=== PATIENT | female | born 1945 | race Caucasian/White ===

== ENCOUNTER → 2023-12-14 08:25 | Outpatient (REF) | payer MEDICARE, OTHER, SELFPAY ==
[2023-12-14 09:38] LABS: % Basophils 0.4 % (0-2); % Eosinophils 1.4 % (0-6); % Immature Granulocytes 0.2 % (0-0.5); % Lymphocytes 23.2 % (20.5-51.1); % Monocytes 12.4 % (1.7-9.3); % Neutrophils 62.4 % (42.2-75.2); Absolute Eosinophils 0.1 10^3/uL (0-0.7); Absolute Lymphocytes 1.2 10^3/uL (1.2-3.4); Absolute Monocytes 0.6 10^3/uL (0.1-0.6); Absolute Neutrophils 3.1 10^3/uL (1.4-6.5); Hematocrit 42.9 % (37.0-47.0); Hemoglobin 14.6 g/dL (12.0-16.0); Mean Corpuscular Hgb 34.8 pg (27.0-31.0); Mean Corpuscular Volume 102.4 fL (81.0-99.0); Nucleated Red Blood Cells % 0 %; Platelet Count 228 10^3/uL (130-400); Red Blood Cell Count 4.19 10^6/uL (4.20-5.40); Red Cell Dist. Width 12.1 % (11.5-14.5)
[2023-12-14 09:55] LABS: ALT (SGPT) 41 U/L (0-35); AST (SGOT) 47 U/L (14-36); Alkaline Phosphatase 89 U/L (38-126); Blood Urea Nitrogen 10 mg/dl (7-17); Carbon Dioxide 28 mmol/L (22-30); Chloride 105 mmol/L (98-107); Glucose 82 mg/dl (70-99); HDL Cholesterol 109 mg/dl; LDL Cholesterol, Calculated 43 mg/dl; Sodium 136 mmol/L (135-145); Total Bilirubin 0.7 mg/dl (0.2-1.3); Total Cholesterol 170 mg/dl (50-199); Total Protein 6.7 g/dl (6.3-8.2); Triglyceride 92 mg/dl (10-149); Very Low Density Lipoprotein 18 mg/dl (0-30); eGFR > 60.00
[2023-12-14 10:01] LABS: Free T4 1.01 ng/dl (0.78-2.19); Vitamin D, 25-OH*** 39.2 ng/mL (30-80)
[2023-12-14 10:14] LABS: TSH 4.22 uIU/ml (0.47-4.68)
[2023-12-14 10:50] LABS: Folate 10.4 ng/ml (2.76-20); Vitamin B12 375 pg/ml (239-931)
[2023-12-14 21:56] LABS: Hepatitis C Antibody Negative (Negative)
== END ==
LOC: HWLAB 08:25
PROVIDERS: ATTENDING PHYSICIAN Nurse Practitioner Primary Care
DX: I10 Essential (primary) hypertension (principal); E78.2 Mixed hyperlipidemia; R71.8 Other abnormality of red blood cells; E53.8 Deficiency of other specified B group vitamins; E03.8 Other specified hypothyroidism; E55.9 Vitamin D deficiency, unspecified
CPT/HCPCS: 36415; 80053; 80061; 82306; 82607; 82746; 84439; 84443; 85025; 86803

== ENCOUNTER 2023-12-19 15:22 | Emergency (ER) | payer MEDICARE, OTHER, SELFPAY ==
[2023-12-19 15:32] VITALS: BP 138/78
[2023-12-19 16:20] VITALS: BP 136/53
[2023-12-19 16:26] VITALS: BMI 26.0
[2023-12-19 17:00] VITALS: BP 137/57
--- NOTE | 2023-12-19 17:16 | ED.GENMED ---
History of Present Illness
General
Chief Complaint: Anal/Rectal Problem
Source: patient
Exam Limitations: none
Time Seen by Provider: 12/19/23 16:37
Nursing documentation reviewed up to this point in time: agreed with
Travel History
Have you had any contact with someone who has COVID-19?: No
Do you have any symptoms of coronavirus? Fever > 100 degrees, chills, cough, shortness of breath, sore throat, loss of taste or smell, muscle aches, or headache?: No
History of Present Illness
History of Present Illness:
Pt with history of external hemorrhoids, presents to ED secondary to recurrent external hemorrhoid, not relieved with outpatient treatment, including rectal care ointment, sitz bath, and laxatives. Patient has had similar symptoms in the past,
which had required clipping by her colorectal surgeon, Dr. Henley. Patient called office and has an appointment in 2 days. Denies fever or chills. Denies difficulty with bowel movements. Denies trauma. Denies abdominal pain. Denies recent
change in medications or diet. Patient feels as though she is probably not drinking enough fluids.
Past History
Past History
ED Past Medical History: HTN, Hypercholesterolemia and Hypothyroidism
ED Past Surgical History: Orthopedic (stent)
Review of Systems
Review of Systems
Allergies reviewed?: Yes
All Other Systems: ROS reviewed and negative except as documented in HPI and ROS
Constitutional: Reports no symptoms
ABD/GI: Reports other (Hemorrhoidal pain)
Musculoskeletal: Reports no symptoms
Skin: Reports no symptoms
Neurological: Reports no symptoms
Phy Exam
Physical Exam
Physical Exam:
Physical Exam
General: mild painful distress, not acutely ill. afebrile
Head: nc/at. eomi
Neck: supple. no meningeal signs.
Abdomen: normal bowel sounds. not tender. (CECILY Espino, at bedside): flesh appearing, painful external hemorrhoid noted without discoloration.
Neuro: alert and oriented. no focal neurological deficits
Skin: no rash
Psychiatric: well kept. interactive and cooperative
Extremities: no edema. no calf tenderness.
Course
Vital Signs
Initial and Last Documented VS:
Initial Vital Signs
Temp Pulse Resp BP Pulse Ox
97.9 F 64 18 138/78 96
12/19/23 15:32 12/19/23 15:32 12/19/23 15:32 12/19/23 15:32 12/19/23 15:32
Last Documented Vital Signs
Temp Pulse Resp BP Pulse Ox
97.9 F 64 18 137/57 97
12/19/23 15:32 12/19/23 15:32 12/19/23 15:32 12/19/23 17:00 12/19/23 17:01
MDM/Problems Addressed
MDM/Problems Addressed:
History and exam consistent with painful, nonthrombosed external hemorrhoid. Patient will be given prescription for Dibucaine ointment for symptomatic relief. Patient will follow-up with Dr. Henley on for reevaluation
*Critical Care Note
Total Time (30-74mins, 75-104mins- exclusive of procedures): Not Applicable
ED Attending Note
-
Portions of this chart may have been created with voice recognition software.� Occasional wrong word or��sound alike� substitutions may have occurred due to the inherent limitations of voice recognition software.
Discharge Plan
Departure
Patient Disposition: Home (Routine Discharge)
Date of Disposition: 12/19/23
Time of Disposition: 17:16
Patient with high blood pressure during this ER visit?: No
Discharge Problem:
External hemorrhoid
Instructions: Hemorrhoids (DC)
Prescriptions:
New
dibucaine 1 % ointment
1 applic ND TID PRN (Reason: hemorrhoids) Qty: 56 0RF
No Action
multivitamin [Multi-Day] 1 EACH tablet
1 tab PO DAILY
levothyroxine 175 MCG tablet
112 mg PO DAILY
atorvastatin 10 MG tablet
20 mg PO DAILY
ergocalciferol (vitamin D2) 400 UNIT tablet
400 unit PO DAILY
timolol maleate 1 DROP drops
1 drp BOTH EYES DAILY
brimonidine-timolol [Combigan] 1 DROP drops
1 drp BOTH EYES DAILY
calcium-vitamin D3-vitamin K [Citracal-D3 Soft Chew] 1 EACH tablet,chewable
1 tab PO DAILY
Metamucil Packet
1 packet PO DAILY
methenamine hippurate 1 gram Tablet
1 g PO DAILY
docusate sodium [Colace] 100 mg Capsule
100 mg PO DAILY
ramipril 10 mg Capsule
10 mg PO DAILY
Referrals:
UNKNOWN - PT DOES,NOT KNOW [Unknown Provider] -
Activity Restrictions/Additional Instructions:
As discussed, please follow up with your colorectal surgeon , as scheduled, for further evaluation and treatment. Your prescription has been sent electronically to [facility] in [place].
Interventions
Interventions:
*Risk Screen - Suicide Last Done: 12/19/23 16:26
*General Assessment Last Done: 12/19/23 15:32
*Neglect/Abuse Screening Last Done: 12/19/23 16:26
ED- Fall Risk Assessment Last Done: 12/19/23 16:26
*ED COVID-19 Vaccine History Last Done: 12/19/23 15:32
*Nursing Disposition Last Done: 12/19/23 17:35
VL-Kefovz-Eitjwdezir Assessment Last Done: 12/19/23 16:26
ED-Skin Assessment Last Done: 12/19/23 16:26
Discharge Date and Time
Discharge Date/Time: 12/19/23 17:35
== END 2023-12-19 17:35 | disposition home or self-care (01) ==
LOC: EMR 15:22
PROVIDERS: EMERGENCY PHYSICIAN Emergency Medicine; FAMILY PHYSICIAN Internal Medicine
DX: K64.4 Residual hemorrhoidal skin tags (principal); I10 Essential (primary) hypertension; E78.00 Pure hypercholesterolemia, unspecified; E03.9 Hypothyroidism, unspecified; Z87.19 Personal history of other diseases of the digestive system
CPT/HCPCS: 99282

== ENCOUNTER → 2023-12-28 08:30 | Outpatient (REF) | payer MEDICARE, OTHER, SELFPAY | LOC: WDC 08:30 | PROVIDERS: ATTENDING PHYSICIAN Nurse Practitioner Family | DX: R92.8 Other abnormal and inconclusive findings on diagnostic imaging of breast (principal) | CPT/HCPCS: 76642 ==

== ENCOUNTER → 2024-01-12 08:40 | Outpatient (REF) | payer MEDICARE, OTHER, SELFPAY ==
[2024-01-12 11:46] LABS: Hematocrit 41.3 % (37.0-47.0); Hemoglobin 14.1 g/dL (12.0-16.0); Mean Corp Hgb Conc. 34.1 g/dL (33.0-37.0); Mean Corpuscular Hgb 34.4 pg (27.0-31.0); Mean Corpuscular Volume 100.7 fL (81.0-99.0); Mean Platelet Volume 10.3 fL (7.4-10.4); Platelet Count 200 10^3/uL (130-400); Red Cell Dist. Width 11.9 % (11.5-14.5); White Blood Cell Count 4.2 10^3/uL (4.8-10.8)
[2024-01-12 12:09] LABS: ALT (SGPT) 29 U/L (0-35); AST (SGOT) 33 U/L (14-36); Albumin 3.8 g/dl (3.5-5.0); Alkaline Phosphatase 70 U/L (38-126); Blood Urea Nitrogen 11 mg/dl (7-17); Calcium 8.7 mg/dl (8.4-10.2); Carbon Dioxide 26 mmol/L (22-30); Chloride 105 mmol/L (98-107); Glucose 79 mg/dl (70-99); Potassium 4.3 mmol/L (3.5-5.1); Sodium 136 mmol/L (135-145); Total Bilirubin 0.7 mg/dl (0.2-1.3); Total Protein 6.5 g/dl (6.3-8.2); eGFR > 60.00
== END ==
LOC: HWLAB 08:40
PROVIDERS: ATTENDING PHYSICIAN Nurse Practitioner Primary Care
DX: R74.8 Abnormal levels of other serum enzymes (principal); D64.9 Anemia, unspecified
CPT/HCPCS: 36415; 80053; 85027

== ENCOUNTER → 2024-01-17 10:42 | Outpatient (REF) | payer MEDICARE, OTHER, SELFPAY | LOC: RCS 10:42 | PROVIDERS: ATTENDING PHYSICIAN Nurse Practitioner Family | DX: Z01.818 Encounter for other preprocedural examination (principal) | CPT/HCPCS: 93005 ==

== ENCOUNTER → 2024-04-15 07:59 | Outpatient (REF) | payer MEDICARE, OTHER, SELFPAY | LOC: WDC 07:59 | PROVIDERS: ATTENDING PHYSICIAN Nurse Practitioner Primary Care; FAMILY PHYSICIAN Nurse Practitioner Family | DX: Z12.31 Encounter for screening mammogram for malignant neoplasm of breast (principal); R92.8 Other abnormal and inconclusive findings on diagnostic imaging of breast | CPT/HCPCS: 76642; 77063; 77067 ==

== ENCOUNTER → 2024-05-24 11:32 | Outpatient (REF) | payer MEDICARE, OTHER, SELFPAY ==
[2024-05-24 16:11] LABS: Urine Albumin Negative (Neg - Trace); Urine Bilirubin Negative (Negative); Urine Glucose Negative (Negative); Urine Ketone Negative (Negative); Urine Leukocyte 2+ (Negative); Urine Nitrite Negative (Negative); Urine Occult Blood Negative (Negative); Urine Specific Gravity 1.005 (<1.030); Urine Urobilinogen Negative (Neg - 1+)
[2024-05-24 16:14] LABS: ALT (SGPT) 20 U/L (0-35); AST (SGOT) 26 U/L (14-36); Albumin 4.1 g/dl (3.5-5.0); Alkaline Phosphatase 75 U/L (38-126); Blood Urea Nitrogen 16 mg/dl (7-17); Calcium 9.7 mg/dl (8.4-10.2); Carbon Dioxide 28 mmol/L (22-30); Chloride 103 mmol/L (98-107); Glucose 79 mg/dl (70-99); Phosphorus 4.2 mg/dl (2.5-4.5); Potassium 4.4 mmol/L (3.5-5.1); Sodium 136 mmol/L (135-145); Total Bilirubin 0.7 mg/dl (0.2-1.3); Total Protein 6.6 g/dl (6.3-8.2); eGFR > 60.00
[2024-05-24 16:33] LABS: Urine Bacteria Few (Negative); Urine Red Blood Cell 0-2 /HPF (0-2); Urine Squamous Cell >30 /LPF (Few)
[2024-05-24 17:23] LABS: Urine Character Clear (Clear); Urine Color Yellow
== END ==
LOC: HWLAB 11:32
PROVIDERS: ATTENDING PHYSICIAN Nurse Practitioner Primary Care
DX: M81.0 Age-related osteoporosis without current pathological fracture (principal); N39.0 Urinary tract infection, site not specified
CPT/HCPCS: 36415; 80053; 81003; 81015; 83735; 84100; 87086

== ENCOUNTER 2024-05-27 09:56 | Outpatient (RCR) | payer MEDICARE, OTHER, SELFPAY ==
[2024-05-27 10:08] VITALS: BP 131/55
[2024-05-27] MEDS: RECLAST 100 IV (10:20)
[2024-05-27 11:01] VITALS: BP 114/54
== END 2024-05-28 08:29 | disposition home or self-care (01) ==
LOC: OID 09:56
PROVIDERS: ATTENDING PHYSICIAN Nurse Practitioner Primary Care
DX: M81.0 Age-related osteoporosis without current pathological fracture (principal)
CPT/HCPCS: 96365; J3489

== ENCOUNTER → 2024-12-31 09:47 | Outpatient (REF) | payer MEDICARE, OTHER, SELFPAY ==
[2024-12-31 13:05] LABS: % Basophils 0.3 % (0-2); % Eosinophils 0.8 % (0-6); % Immature Granulocytes 0.3 % (0-0.5); % Lymphocytes 21.4 % (20.5-51.1); % Monocytes 8.1 % (1.7-9.3); % Neutrophils 69.1 % (42.2-75.2); Absolute Eosinophils 0.1 10^3/uL (0-0.7); Absolute Lymphocytes 1.4 10^3/uL (1.2-3.4); Absolute Monocytes 0.5 10^3/uL (0.1-0.6); Absolute Neutrophils 4.4 10^3/uL (1.4-6.5); Hematocrit 47.7 % (37.0-47.0); Hemoglobin 15.8 g/dL (12.0-16.0); Mean Corp Hgb Conc. 33.1 g/dL (33.0-37.0); Mean Corpuscular Hgb 33.5 pg (27.0-31.0); Mean Corpuscular Volume 101.1 fL (81.0-99.0); Mean Platelet Volume 9.8 fL (7.4-10.4); Nucleated Red Blood Cells % 0 %; Platelet Count 290 10^3/uL (130-400); Red Blood Cell Count 4.72 10^6/uL (4.20-5.40); Red Cell Dist. Width 11.5 % (11.5-14.5); White Blood Cell Count 6.3 10^3/uL (4.8-10.8)
[2024-12-31 13:46] LABS: ALT (SGPT) 16 U/L (0-35); AST (SGOT) 20 U/L (14-36); Albumin 3.8 g/dl (3.5-5.0); Alkaline Phosphatase 69 U/L (38-126); Blood Urea Nitrogen 10 mg/dl (7-17); Calcium 9.2 mg/dl (8.4-10.2); Carbon Dioxide 27 mmol/L (22-30); Chloride 102 mmol/L (98-107); Glucose 79 mg/dl (70-99); HDL Cholesterol 80 mg/dl; LDL Cholesterol, Calculated 63 mg/dl; Potassium 4.4 mmol/L (3.5-5.1); Sodium 136 mmol/L (135-145); Total Bilirubin 0.8 mg/dl (0.2-1.3); Total Cholesterol 162 mg/dl (50-199); Total Protein 6.9 g/dl (6.3-8.2); Triglyceride 95 mg/dl (10-149); Very Low Density Lipoprotein 19 mg/dl (0-30); eGFR > 60.00
[2024-12-31 14:04] LABS: Free T4 1.48 ng/dl (0.78-2.19); Vitamin D, 25-OH*** 39.6 ng/mL (30-80)
[2024-12-31 14:17] LABS: TSH 1.15 uIU/ml (0.47-4.68)
[2024-12-31 14:53] LABS: Folate 9.1 ng/ml (2.76-20); Vitamin B12 879 pg/ml (239-931)
== END ==
LOC: HWLAB 09:47
PROVIDERS: ATTENDING PHYSICIAN Nurse Practitioner Primary Care
DX: I10 Essential (primary) hypertension (principal); E78.2 Mixed hyperlipidemia; E03.8 Other specified hypothyroidism; M81.0 Age-related osteoporosis without current pathological fracture; R71.8 Other abnormality of red blood cells; E55.9 Vitamin D deficiency, unspecified; E03.9 Hypothyroidism, unspecified
CPT/HCPCS: 36415; 80053; 80061; 82306; 82607; 82746; 84439; 84443; 85025

== ENCOUNTER → 2025-02-25 10:07 | Outpatient (REF) | payer MEDICARE, OTHER, SELFPAY | LOC: RAD 10:07 | PROVIDERS: ATTENDING PHYSICIAN Nurse Practitioner Primary Care | DX: R11.2 Nausea with vomiting, unspecified (principal); K44.9 Diaphragmatic hernia without obstruction or gangrene | CPT/HCPCS: 74246 ==

== ENCOUNTER → 2025-04-17 13:00 | Outpatient (REF) | payer MEDICARE, OTHER, SELFPAY | LOC: HWRAD 13:00 | PROVIDERS: ATTENDING PHYSICIAN Nurse Practitioner Primary Care | DX: M81.0 Age-related osteoporosis without current pathological fracture (principal) | CPT/HCPCS: 77080 ==

== ENCOUNTER → 2025-04-21 10:36 | Outpatient (REF) | payer MEDICARE, OTHER, SELFPAY | LOC: WDC 10:36 | PROVIDERS: ATTENDING PHYSICIAN Nurse Practitioner Primary Care | DX: Z12.31 Encounter for screening mammogram for malignant neoplasm of breast (principal) | CPT/HCPCS: 77063; 77067 ==

== ENCOUNTER 2025-05-15 06:15 | Day surgery (SDC) | payer MEDICARE, OTHER, SELFPAY ==
[2025-05-15 13:20] VITALS: BMI 25.2
[2025-05-15 13:21] VITALS: BP 148/67
[2025-05-15 14:45] VITALS: BP 111/97
[2025-05-15 15:00] VITALS: BP 157/66
== END 2025-05-15 15:14 | disposition home or self-care (01) ==
LOC: SDS 06:15
PROVIDERS: ATTENDING PHYSICIAN Surgery
DX: K44.9 Diaphragmatic hernia without obstruction or gangrene (principal); K22.89 Other specified disease of esophagus; R13.10 Dysphagia, unspecified; R12 Heartburn
CPT/HCPCS: 43235

== ENCOUNTER → 2025-06-05 10:41 | Outpatient (REF) | payer MEDICARE, OTHER, SELFPAY ==
[2025-06-05 12:30] LABS: Hematocrit 43.0 % (37.0-47.0); Hemoglobin 14.4 g/dL (12.0-16.0); Mean Corp Hgb Conc. 33.5 g/dL (33.0-37.0); Mean Corpuscular Volume 102.6 fL (81.0-99.0); Nucleated Red Blood Cells % 0 %; Platelet Count 241 10^3/uL (130-400); Red Cell Dist. Width 12.0 % (11.5-14.5)
[2025-06-05 12:57] LABS: ALT (SGPT) 22 U/L (0-35); AST (SGOT) 27 U/L (14-36); Albumin 4.3 g/dl (3.5-5.0); Alkaline Phosphatase 62 U/L (38-126); Blood Urea Nitrogen 13 mg/dl (7-17); Calcium 9.3 mg/dl (8.4-10.2); Carbon Dioxide 27 mmol/L (22-30); Chloride 104 mmol/L (98-107); Glucose 114 mg/dl (70-99); Potassium 4.6 mmol/L (3.5-5.1); Sodium 138 mmol/L (135-145); Total Protein 7.1 g/dl (6.3-8.2); eGFR > 60.00
== END ==
LOC: REG 10:41
PROVIDERS: ATTENDING PHYSICIAN Nurse Practitioner Primary Care
DX: M85.88 Other specified disorders of bone density and structure, other site (principal); R74.8 Abnormal levels of other serum enzymes; I10 Essential (primary) hypertension
CPT/HCPCS: 36415; 80053; 85025

== ENCOUNTER 2025-06-16 14:26 | Outpatient (RCR) | payer MEDICARE, OTHER, SELFPAY ==
[2025-06-16 14:30] VITALS: BP 135/55
[2025-06-16] MEDS: RECLAST 100 IV (14:52)
== END 2025-06-17 10:14 | disposition home or self-care (01) ==
LOC: OID 14:26
PROVIDERS: ATTENDING PHYSICIAN Nurse Practitioner Primary Care
DX: M81.0 Age-related osteoporosis without current pathological fracture (principal)
CPT/HCPCS: 96365; J3489

== ENCOUNTER → 2025-06-16 16:26 | Outpatient (REF) | payer MEDICARE, OTHER, SELFPAY ==
[2025-06-16 16:45] LABS: Urine Character Clear (Clear)
[2025-06-16 17:16] LABS: Urine Red Blood Cell 0-2 /HPF (0-2)
[2025-06-16 17:17] LABS: Urine White Cell 21-25 /HPF (0-5)
== END ==
LOC: REG 16:26
PROVIDERS: ATTENDING PHYSICIAN Internal Medicine Infectious Disease; FAMILY PHYSICIAN Nurse Practitioner Primary Care
DX: N39.0 Urinary tract infection, site not specified (principal)
CPT/HCPCS: 81003; 81015; 87086

== ENCOUNTER → 2025-09-15 13:12 | Outpatient (REF) | payer MEDICARE, OTHER, SELFPAY | LOC: CLAB 13:12 | PROVIDERS: ATTENDING PHYSICIAN Specialist | DX: N39.0 Urinary tract infection, site not specified (principal) | CPT/HCPCS: 87086 ==

== ENCOUNTER → 2025-10-02 14:35 | Outpatient (REF) | payer MEDICARE, OTHER, SELFPAY | LOC: WDC 14:35 | PROVIDERS: ATTENDING PHYSICIAN Nurse Practitioner Primary Care | DX: R92.2 Inconclusive mammogram (principal) | CPT/HCPCS: 76641 ==

== ENCOUNTER → 2025-10-28 09:14 | Outpatient (REF) | payer MEDICARE, OTHER, SELFPAY ==
[2025-10-28 11:21] LABS: Hematocrit 44.6 % (37.0-47.0); Hemoglobin 14.8 g/dL (12.0-16.0); Mean Corp Hgb Conc. 33.2 g/dL (33.0-37.0); Mean Corpuscular Volume 101.1 fL (81.0-99.0); Platelet Count 243 10^3/uL (130-400); Red Cell Dist. Width 11.9 % (11.5-14.5)
[2025-10-28 11:45] LABS: Blood Urea Nitrogen 15 mg/dl (7-17); Calcium 9.3 mg/dl (8.4-10.2); Carbon Dioxide 27 mmol/L (22-30); Chloride 102 mmol/L (98-107); Glucose 80 mg/dl (70-99); Potassium 4.2 mmol/L (3.5-5.1); Sodium 136 mmol/L (135-145); eGFR > 60.00
== END ==
LOC: SDSPAT 09:14
PROVIDERS: ATTENDING PHYSICIAN Surgery; FAMILY PHYSICIAN Internal Medicine
DX: Z01.818 Encounter for other preprocedural examination (principal)
CPT/HCPCS: 36415; 80048; 85027; 93005